=== PATIENT | female | born 1985 | race American Indian/Alaskan Native ===

== ENCOUNTER 2021-08-30 12:48 | Outpatient (CLI) | payer OTHER | END 2021-08-30 13:34 | disposition home or self-care (01) | LOC: NST 12:48 | PROVIDERS: ATTEND Obstetrics & Gynecology Maternal & Fetal Medicine | DX: Z34.83 Encounter for supervision of other normal pregnancy, third trimester (principal) ==

== ENCOUNTER 2021-09-09 03:00 | Inpatient (IN) | payer OTHER ==
[~2021-09-09] VITALS: Ht 170.2 cm; Wt 73.9 kg
[2021-09-09] MEDS ORDERED: PRENATABS RX T1 EACH (03:08)
[2021-09-09] MEDS ORDERED: VALTREX1000 MG PO (03:09)
== END 2021-09-11 11:36 | disposition home or self-care (01) | DRG 807 ==
LOC: LDR 03:00 → OB/GYN 05:52 → LDR 09-16 15:15
PROVIDERS: ADMIT Obstetrics & Gynecology Maternal & Fetal Medicine; ATTEND Obstetrics & Gynecology Maternal & Fetal Medicine
PROC: 10E0XZZ Delivery of Products of Conception, External Approach (ICD-10-PCS; principal; 2021-09-09)
PROC: 0KQM0ZZ Repair Perineum Muscle, Open Approach (ICD-10-PCS; 2021-09-09)
PROC: 0W8NXZZ Division of Female Perineum, External Approach (ICD-10-PCS; 2021-09-09)
PROC: 4A1HXFZ Monitoring of Products of Conception, Cardiac Rhythm, External Approach (ICD-10-PCS; 2021-09-09)
DX: O70.1 Second degree perineal laceration during delivery (principal); Z37.0 Single live birth; Z3A.39 39 weeks gestation of pregnancy

== ENCOUNTER 2022-10-12 17:17 | Emergency (ER) | payer OTHER ==
[~2022-10-12] VITALS: Ht 167.6 cm; Wt 59.9 kg
[~2022-10-12 17:17] MED LIST: PRENATABS RX T1 EACH; VALTREX1000 MG PO
== END 2022-10-13 12:13 | disposition home or self-care (01) ==
LOC: ER 17:17
DX: O03.9 Complete or unspecified spontaneous abortion without complication (principal)

== ENCOUNTER 2023-07-28 13:01 | Inpatient (IN) | payer OTHER ==
[~2023-07-28] VITALS: Ht 167.6 cm; Wt 78.5 kg
[2023-08-14 11:41] LABS: HEMATOCRIT 35.3 % (36.0-45.00); HEMOGLOBIN 12.5 g/dL (12.0-15.00); MEAN CELL VOLUME 94.6 fL (80.00-100.00); MEAN CORPUSCULAR HEMOGLOBIN 33.5 pg (27.00-32.0); MEAN CORPUSCULAR HGB CONC 35.4 g/dl (32.0-36.0); RED BLOOD COUNT 3.74 M/uL (4.00-6.00); RED CELL DISTRIBUTION WIDTH 13.6 % (11.5-14.5)
[2023-08-14 11:42] LABS: PLATELET COUNT 118 K/uL (150-450)
[2023-08-14 12:15] LABS: BILIRUBIN TOTAL 0.22 mg/dL (0.3-1.2); CALCIUM 8.7 mg/dL (8.5-10.1); CREATININE SERUM 0.6 mg/dL (0.55-1.02); GFR 113.11; POTASSIUM 4.04 mEq/L (3.5-5.1)
[2023-08-14 12:30] LABS: INR < 0.93; PARTIAL THROMBOPLASTIN TIME 27.6 SECONDS (22.0-34.0); PROTHROMBIN TIME 9.5 SECONDS (9.0-11.5)
[2023-08-14] MEDS ORDERED: VALACYCLOVIR500 MG PO (12:40)
[2023-08-15 06:47] LABS: HEMATOCRIT 31.7 % (36.0-45.00); HEMOGLOBIN 11.2 g/dL (12.0-15.00); MEAN CORPUSCULAR HEMOGLOBIN 33.4 pg (27.00-32.0); MEAN CORPUSCULAR HGB CONC 35.5 g/dl (32.0-36.0); RED BLOOD COUNT 3.37 M/uL (4.00-6.00); RED CELL DISTRIBUTION WIDTH 13.8 % (11.5-14.5)
[2023-08-15 06:51] LABS: PLATELET COUNT 104 K/uL (150-450)
== END 2023-08-16 14:38 | disposition home or self-care (01) | DRG 807 ==
LOC: OB/GYN 08-14 09:59 → LDR 08-14 09:59 → OB/GYN 08-14 13:09
PROVIDERS: Obstetrics & Gynecology; ADMIT Obstetrics & Gynecology Maternal & Fetal Medicine; ATTEND Obstetrics & Gynecology Maternal & Fetal Medicine
PROC: 10E0XZZ Delivery of Products of Conception, External Approach (ICD-10-PCS; principal; 2023-08-14)
PROC: 0HQ9XZZ Repair Perineum Skin, External Approach (ICD-10-PCS; 2023-08-14)
PROC: 4A1HXCZ Monitoring of Products of Conception, Cardiac Rate, External Approach (ICD-10-PCS; 2023-08-14)
DX: O70.0 First degree perineal laceration during delivery (principal); Z37.0 Single live birth; Z3A.39 39 weeks gestation of pregnancy; Z20.822 Contact with and (suspected) exposure to COVID-19

== ENCOUNTER 2023-08-04 10:06 | Outpatient (CLI) | payer OTHER | END 2023-08-04 10:46 | disposition home or self-care (01) | LOC: NST 10:06 | PROVIDERS: ATTEND Obstetrics & Gynecology Maternal & Fetal Medicine | DX: Z34.83 Encounter for supervision of other normal pregnancy, third trimester (principal) ==